=== PATIENT | female | born 1975 | race American Indian/Alaskan Native ===

== ENCOUNTER 2019-02-01 11:17 | Emergency (ER) | payer SELFPAY ==
[2019-02-01 11:31] VITALS: BP 123/89
--- NOTE | 2019-02-01 11:32 | Event Note ---
ED Screening Note Date of service: 02/01/19 Time: 11:31 ED Screening Note: 43 y o f presents withcc of irregular vaginal bleeding witth dysuria and suprapubic pain This initial assessment/diagnostic orders/clinical plan/treatment(s) is/are subject to change based on patients health status, clinical progression and re- assessment by fellow clinical providers in the ED. Further treatment and workup at subsequent clinical providers discretion. Patient/guardian urged not to elope from the ED as their condition may be serious if not clinically assessed and managed. Initial orders include: ua,upt
[2019-02-01 11:56] LABS: Bacteria,Urine 2+ /HPF (Negative); Bilirubin,Urine NEG (Negative); Blood,Urine SM (Negative); Color,Urine Yellow (Yellow); HCG Qualitative,Urine Negative (Negative); Mucus,Urine 1+ /HPF; Urobilinogen,Urine < 2.0 mg/dL (<2.0)
--- NOTE | 2019-02-01 12:54 | Emergency Department Report ---
ED Female HPI - General Chief complaint: Vaginal Bleeding Stated complaint: BENJAMIN CYCLE/HBP/LT SIDE HEADACHE Time Seen by Provider: 02/01/19 11:48 Source: patient Mode of arrival: Ambulatory Limitations: No Limitations - History of Present Illness Initial comments: This is a 43-year-old female nontoxic, well nourished in appearance, no acute signs of distress presents to the ED with c/o of dysuria, vaginal bleeding, pelvic pain, and urinary frequency x2 weeks. Patient stated she was diagnosed with UTI on 07/2017 and received antibiotics and resolved but now symptoms reoccurred. Patient denies any vaginal discharge, bleeding, ulcers or lesions. Patient denies any back pain. Patient denies any pelvic or abdominal pain. Patient denies any nausea, vomiting, chest pain, shortness of breathe, fever, chills, headache, back pain, numbness, tingling, stiff neck. Patient denies any urinary symptoms. Patient denies any allergies or PMH. MD Complaint: vaginal bleeding, dysuria, pelvic pain -: week(s) (2) Radiation: non-radiating Severity: mild Severity scale (0 -10): 3 Quality: cramping Consistency: constant Improves with: none Worsens with: none Are you Now?: No Associated Symptoms: vaginal bleeding, abdominal pain (pelvic area), dysuria. denies: vaginal discharge, nausea/vomiting, fever/chills, headaches, loss of appetite, hematuria, rash, seizure, shortness of breath, syncope, weakness - Related Data Sexually active: Yes Previous Rx's Medication Instructions Recorded Last Taken Type Fluconazole [Diflucan TAB] 150 mg PO ONCE #1 tablet 02/01/19 Unknown Rx Ibuprofen [Motrin] 600 mg PO Q8H PRN #20 tablet 02/01/19 Unknown Rx Sulfamethoxazole/Trimethoprim 1 each PO BID #14 tablet 02/01/19 Unknown Rx [Bactrim DS TAB] metroNIDAZOLE [Flagyl] 500 mg PO Q12HR #14 tab 02/01/19 Unknown Rx Allergies Allergy/AdvReac Type Severity Reaction Status Date / Time No Known Allergies Allergy Unverified 02/01/19 11:23 ED Review of Systems ROS: Stated complaint: BENJAMIN CYCLE/HBP/LT SIDE HEADACHE Other details as noted in HPI Constitutional: denies: chills, fever Eyes: denies: eye pain, eye discharge, vision change ENT: denies: ear pain, throat pain Respiratory: denies: cough, shortness of breath, wheezing Cardiovascular: denies: chest pain, palpitations Endocrine: no symptoms reported Gastrointestinal: denies: abdominal pain, nausea, diarrhea Genitourinary: urgency, frequency, abnormal menses. denies: dysuria, hematuria, discharge, dyspareunia Musculoskeletal: denies: back pain, joint swelling, arthralgia Skin: denies: rash, lesions Neurological: denies: headache, weakness, paresthesias Psychiatric: denies: anxiety, depression Hematological/Lymphatic: denies: easy bleeding, easy bruising ED Past Medical Hx - Past Medical History Hx Hypertension: Yes - Surgical History Past Surgical History?: Yes Additional Surgical History: c- section. tubal ligation - Social History Smoking Status: Never Smoker Substance Use Type: None - Medications Home Medications: Home Medications Medication Instructions Recorded Confirmed Last Taken Type Fluconazole [Diflucan TAB] 150 mg PO ONCE #1 tablet 02/01/19 Unknown Rx Ibuprofen [Motrin] 600 mg PO Q8H PRN #20 tablet 02/01/19 Unknown Rx Sulfamethoxazole/Trimethoprim 1 each PO BID #14 tablet 02/01/19 Unknown Rx [Bactrim DS TAB] metroNIDAZOLE [Flagyl] 500 mg PO Q12HR #14 tab 02/01/19 Unknown Rx ED Physical Exam - General Limitations: No Limitations General appearance: alert, in no apparent distress - Head Head exam: Present: atraumatic, normocephalic - Neck Neck exam: Present: normal inspection, full ROM. Absent: tenderness, meningismus, lymphadenopathy - GI/Abdominal GI/Abdominal exam: Present: soft, normal bowel sounds. Absent: distended, tenderness, guarding, rebound, rigid, diminished bowel sounds - External exam: Present: other (cellular phone repairer Dianna grain wafer machine operator present during exam). Absent: erythema, swelling, lesions, lacerations, ecchymosis, bleeding Speculum exam: Present: vaginal bleeding, other (cellular phone repairer Dianna grain wafer machine operator present during exam). Absent: erythema, vaginal discharge, foreign body, tissue, laceration Bi-manual exam: Present: normal bi-manual exam, other (cellular phone repairer Dianna grain wafer machine operator present during exam). Absent: cervical motion tendernes, adnexal tenderness, adnexal mass, uterine enlargement, uterine tenderness - Extremities Exam Extremities exam: Present: normal inspection, full ROM - Back Exam Back exam: Present: normal inspection, full ROM. Absent: tenderness, CVA tenderness (R), CVA tenderness (L), muscle spasm, paraspinal tenderness, vertebral tenderness, rash noted - Neurological Exam Neurological exam: Present: alert, oriented X3, normal gait - Psychiatric Psychiatric exam: Present: normal affect, normal mood - Skin Skin exam: Present: warm, dry, intact, normal color. Absent: rash ED Course Vital Signs 02/01/19 11:23 Temperature 98.0 F Pulse Rate 108 H Respiratory 18 Rate Blood Pressure 123/89 O2 Sat by Pulse 100 Oximetry - Reevaluation(s) Reevaluation #1: 02/01/19 12:55 Patient is speaking in full sentences with no signs of distress noted. ED Medical Decision Making - Lab Data Result diagrams: 02/01/19 12:41 02/01/19 12:41 - Medical Decision Making This is a 43-year-old female that presents with dysmenorrhea, BV, vaginal yeast and UTI. Patient is stable and was examined by me. Patient did have a cervical motion tenderness. Gonorrhea chlamydia pending. Pelvic ultrasound has been obtained and dictated by radiologist with ovarian cyst. Patient is notified of the results with no questions noted by the patient. Patient was instructed to Follow-up with a SURVEYOR doctor in 3-5 days or if symptoms worsen and continue return to emergency room as soon as possible. At time of discharge, the patient does not seem toxic or ill in appearance. No acute signs of distress noted. Patient agrees to discharge treatment plan of care. No further questions noted by the patient. Critical care attestation.: If time is entered above; I have spent that time in minutes in the direct care of this critically ill patient, excluding procedure time. ED Disposition Clinical Impression: Right ovarian cyst, Bacterial vaginosis, Vaginal yeast infection, Dysmenorrhea UTI (urinary tract infection) Qualifiers: Urinary tract infection type: acute cystitis Hematuria presence: with hematuria Qualified Code(s): N30.01 - Acute cystitis with hematuria Disposition: TO HOME OR SELFCARE Is pt being admited?: No Does the pt Need Aspirin: No Condition: Stable Instructions: Bacterial Vaginosis (ED), Metronidazole (By mouth), Dysmenorrhea (ED) Additional Instructions: Follow-up with a SURVEYOR doctor in 3-5 days or if symptoms worsen and continue return to emergency room as soon as possible. Prescriptions: Sulfamethoxazole/Trimethoprim [Bactrim DS TAB] 1 each PO BID #14 tablet Fluconazole [Diflucan TAB] 150 mg PO ONCE #1 tablet metroNIDAZOLE [Flagyl] 500 mg PO Q12HR #14 tab Ibuprofen [Motrin] 600 mg PO Q8H PRN #20 tablet PRN Reason: Pain Referrals: PRIMARY CAREMD [Referring] - 3-5 Days FREDY CARNEY MD [Staff Physician] - 3-5 Days AUGUSTINE SOLIS MD [Staff Physician] - 3-5 Days [facility] [Outside] - 3-5 Days Forms: Work/School Release Form(ED)
--- NOTE | 2019-02-01 13:03 | Ultrasound Report ---
Pelvic Ultrasound HISTORY: pelvic pain and vaginal bleeding. TECHNIQUE: Grayscale and color Doppler imaging performed. COMPARISON: None FINDINGS: Transabdominal and endovaginal imaging was performed. Uterus measures 9.4 x 3.8 x 5.7 cm wi th endometrial echo complex measuring 1 cm. There appear to be a few small parenchymal calcifications within the uterine myometrium. There is a simple right ovarian cyst measuring 3 cm in maximal dimens ion. Ovaries otherwise both appear unremarkable. There is trace simple pelvic free fluid. IMPRESSION: 1. Simple right ovarian cyst and trace simple pelvic free fluid, likely physiologic for a woman of th is age. Signer Name: Kirit Carrero MD Signed: 02/01/2019 12:58 PM Workstation Name: [id number]
[2019-02-01 13:04] LABS: Basophils % (Auto) 0.6 % (0.0-1.8); Eosinophils % (Auto) 0.7 % (0.0-4.3); Hematocrit 34.7 % (30.3-42.9); Hemoglobin 11.1 gm/dl (10.1-14.3); Mean Corpuscular HGB Conc 32 % (30-34); Mean Corpuscular Volume 74 fl (79-97); Monocytes # (Auto) 0.4 K/mm3 (0.0-0.8); Monocytes % (Auto) 8.8 % (0.0-7.3); Platelet Count 318 K/mm3 (140-440); Red Blood Count 4.68 M/mm3 (3.65-5.03); Red Cell Distribution Width 17.9 % (13.2-15.2)
[2019-02-01 13:34] LABS: BUN/Creatinine Ratio 18; Blood Urea Nitrogen 9 mg/dL (7-17); Hemolysis Index 0
[2019-02-01 13:35] LABS: INR 0.94 (0.87-1.13); Partial Thromboplastin Time 30.4 Sec. (24.2-36.6)
== END 2019-02-01 14:58 | disposition home or self-care (01) ==
LOC: ED 11:17
DX: N83.201 Unspecified ovarian cyst, right side (principal); B37.3 Candidiasis of vulva and vagina; N94.6 Dysmenorrhea, unspecified; I10 Essential (primary) hypertension; Z98.51 Tubal ligation status; Z79.899 Other long term (current) drug therapy
CPT/HCPCS: 36415; 76830; 80048; 81001; 81025; 85025; 85610; 85730; 87076; 87086; 87186; 87210; 87591; 93975

== ENCOUNTER 2021-05-26 17:27 | Emergency (ER) | payer OTHER ==
[2021-05-26 18:34] VITALS: BP 159/89
[2021-05-26] MEDS ORDERED: diazePAM 5 MG TAB PO ONE (21:33)
[2021-05-26] MEDS ORDERED: IBUPROFEN 600 MG TAB PO ONE (21:33)
[2021-05-26] MEDS ORDERED: ACETAMINOPHEN 500 MG TAB PO ONE (21:33)
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
== END 2021-05-26 23:16 | disposition home or self-care (01) ==
LOC: ED 17:27
DX: S43.492A Other sprain of left shoulder joint, initial encounter (principal); S29.011A Strain of muscle and tendon of front wall of thorax, initial encounter; R51.9 Headache, unspecified; M62.838 Other muscle spasm; M54.2 Cervicalgia; I10 Essential (primary) hypertension; Z98.51 Tubal ligation status; Z98.890 Other specified postprocedural states; Z79.899 Other long term (current) drug therapy; V87.7XXA Person injured in collision between other specified motor vehicles (traffic), initial encounter; Y93.89 Activity, other specified; Y92.488 Other paved roadways as the place of occurrence of the external cause; Y99.8 Other external cause status
CPT/HCPCS: 70450; 71046; 72125; 99284